=== PATIENT | female | born 1995 | race Caucasian/White ===

== ENCOUNTER 2017-07-10 17:02 | Emergency (ER) | payer MEDICAID, OTHER ==
[2017-07-10 17:26] VITALS: RESP 18
--- NOTE | 2017-07-10 18:31 | C.PDOC ---
History Of Present Illness 22 year old female with a Hx of old right shoulder dislocation at the age of 13 presents to the ER after she was play fighting with her friend 3-4 days ago and heard a crack. Patient is now complaining of pain to the right upper back and right shoulder area. Patient states she took NSAIDs once the day the injury occurred but has not since then. Denies weakness or numbness. Time Seen by Provider: 07/10/17 17:43 Chief Complaint (Nursing): Upper Extremity Problem/Injury History Per: Patient History/Exam Limitations: no limitations Onset/Duration Of Symptoms: Days Current Symptoms Are (Timing): Still Present Exacerbating Factor(s): Strenuous Use Of Affected Area Recent travel outside of the [place]: No Past Medical History Reviewed: Historical Data, Nursing Documentation, Vital Signs Vital Signs: Last Vital Signs Temp 98.5 F 07/10/17 19:44 Pulse 84 07/10/17 19:44 Resp 18 07/10/17 19:44 BP 110/59 L 07/10/17 19:44 Pulse Ox 99 07/11/17 22:21 Family History: States: Unknown Family Hx - Social History Hx Tobacco Use: No Hx Alcohol Use: Yes Hx Substance Use: No - Immunization History Hx Tetanus Toxoid Vaccination: No Hx Influenza Vaccination: No Hx Pneumococcal Vaccination: No Review Of Systems Musculoskeletal: Positive for: Shoulder Pain (Right), Back Pain (Right upper) Neurological: Negative for: Weakness, Numbness Physical Exam - Physical Exam Appears: Non-toxic, Other (Mildly uncomfortable) Skin: Normal Color, Warm, Dry Head: Atraumatic, Normacephalic Eye(s): bilateral: Normal Inspection Neck: No Midline Cervical Tenderness, No Step Off Deformity, Supple Back: Paraspinal Tenderness (Right trapezius/rhomboid) Extremity: Normal ROM (x4), Tenderness (Right posterior shoulder), Capillary Refill (<2 seconds), No Deformity, Other (Right shoulder not displaced) Pulses: Left Radial: Normal, Right Radial: Normal Neurological/Psych: Oriented x3, Normal Speech, Normal Motor, Normal Sensation ED Course And Treatment O2 Sat by Pulse Oximetry: 99 (Room air) Pulse Ox Interpretation: Normal Medical Decision Making Medical Decision Making: Right shoulder x-ray ordered. Toradol administered. 758 pm pt feeling much better after Toradol, ready to go home. xray neg for fx and dislocation Disposition Counseled Patient/Family Regarding: Studies Performed, Diagnosis, Need For Followup, Rx Given - Disposition Referrals: Ronal Haji MD [Staff Provider] - Disposition: HOME/ ROUTINE Disposition Time: 20:00 Condition: IMPROVED Additional Instructions: Please take ibuprofren as prescribed, Cold compresses to affected area several times a day. FOllow up with orthopedics if pain persists after a few days. . Prescriptions: Ibuprofen [Motrin] 600 mg PO TID #30 tab Forms: [employer] (Romansh), General Discharge Instructions - Clinical Impression Clinical Impression: Trapezius muscle strain, Shoulder pain, right - PA / [employer] / Resident Statement MD/DO has reviewed & agrees with the documentation as recorded. - Scribe Statement The provider has reviewed the documentation as recorded by the Scribivania Juan All medical record entries made by the Chanelibivania were at my direction and personally dictated by me. I have reviewed the chart and agree that the record accurately reflects my personal performance of the history, physical exam, medical decision making, and the department course for this patient. I have also personally directed, reviewed, and agree with the discharge instructions and disposition.
[2017-07-10 19:44] VITALS: BP 110/59; PULSE 84; TEMP 98.5
[2017-07-10 20:02] VITALS: O2SAT 99
--- NOTE | 2017-07-11 09:01 | RAD ---
PROCEDURE: Radiographs of the Right Shoulder HISTORY: tender to posterior shoulder, hx prior dislocation COMPARISON: No prior. FINDINGS: BONES: Normal. No fracture. JOINTS: Normal. Glenohumeral and acromioclavicular joints preserved. No osteoarthritis. SOFT TISSUES: Normal. OTHER FINDINGS: None. IMPRESSION: No evidence of acute fracture or dislocation.
== END 2017-07-10 20:16 | disposition home or self-care (01) ==
LOC: C.ER 17:02
DX: S46.911A Strain of unspecified muscle, fascia and tendon at shoulder and upper arm level, right arm, initial encounter (principal); X50.0XXA Overexertion from strenuous movement or load, initial encounter; Y92.9 Unspecified place or not applicable; M25.511 Pain in right shoulder
CPT/HCPCS: 73030; 96372; 99284; J1885

== ENCOUNTER 2018-05-30 16:54 | Emergency (ER) | payer MEDICAID, OTHER ==
[2018-05-30 17:08] VITALS: BP 137/86; PULSE 81; RESP 18; TEMP 99.5; O2SAT 99
[2018-05-30] MEDS ORDERED: Amoxicillin-Clav 500-125 mg Tab PO ONE (17:36)
--- NOTE | 2018-05-30 17:43 | C.PDOC ---
History Of Present Illness 23 year old female presents to the ED complaining of sore throat and ear pain for 3 days. Denies any fever, chills, congestion, n/v/d, or any other complaints. Time Seen by Provider: 05/30/18 17:08 Chief Complaint (Nursing): ENT Problem History Per: Patient History/Exam Limitations: None Onset/Duration Of Symptoms: Days (3) Current Symptoms Are (Timing): Still Present Quality (Ear): Pain W/Touch Quality (Mouth/Throat): Other (pain) Past Medical History Reviewed: Historical Data, Nursing Documentation, Vital Signs Vital Signs: Last Vital Signs Temp 99.5 F 05/30/18 17:05 Pulse 81 05/30/18 17:05 Resp 18 05/30/18 17:05 BP 137/86 05/30/18 17:05 Pulse Ox 99 05/30/18 17:05 - Medical History PMH: No Chronic Diseases Denies: Asthma, Diabetes, Hepatitis, HIV, HTN, Chronic Kidney Disease, Seizures, Sexually Transmitted Disease Surgical History: No Surg Hx Family History: States: No Known Family Hx - Social History Hx Tobacco Use: No Hx Alcohol Use: Yes Hx Substance Use: No - Immunization History Hx Tetanus Toxoid Vaccination: No Hx Influenza Vaccination: No Hx Pneumococcal Vaccination: No Review Of Systems Except As Marked, All Systems Reviewed And Found Negative. Constitutional: Negative for: Fever, Chills ENT: Positive for: Ear Pain, Throat Pain. Negative for: Nose Discharge, Nose Congestion Respiratory: Negative for: Cough, Shortness of Breath Gastrointestinal: Negative for: Nausea, Vomiting, Diarrhea Physical Exam - Physical Exam Appears: Non-toxic, No Acute Distress Skin: Warm, Dry, No Rash Head: Normacephalic Eye(s): bilateral: Normal Inspection Ear(s): Bilateral: TM Erythema Nose: Normal Oral Mucosa: Moist Tongue: Normal Appearing Lips: Normal Appearing Teeth: Normal Dentition Gingiva: Normal Appearing Throat: Erythema, No Exudate Neck: Supple Chest: Symmetrical Cardiovascular: Rhythm Regular Respiratory: Normal Breath Sounds, No Rales, No Rhonchi, No Wheezing Neurological/Psych: Oriented x3, Normal Speech Gait: Steady ED Course And Treatment O2 Sat by Pulse Oximetry: 99 (RA) Pulse Ox Interpretation: Normal Medical Decision Making Medical Decision Making: Plan - Amoxicillin 500mg PO om no unilaterla swelling hotpotato voice. well appearin onphone inn ad. Disposition - Disposition Referrals: [facility] [Outside] [facility] [Outside] Disposition: HOME/ ROUTINE Disposition Time: 18:09 Condition: STABLE Additional Instructions: return to any er with worsening. Prescriptions: RX: Amoxicillin [Amoxil 500 mg Cap] 500 mg PO TID #30 cap Instructions: Ear Infections (Otitis Media), Sore Throat, Adult (DC) Forms: [employer] (Amharic) - Clinical Impression Clinical Impression: Otitis media - Scribe Statement The provider has reviewed the documentation as recorded by the Scribe Kathleen Quintana All medical record entries made by the Scribe were at my direction and personally dictated by me. I have reviewed the chart and agree that the record accurately reflects my personal performance of the history, physical exam, medical decision making, and the department course for this patient. I have also personally directed, reviewed, and agree with the discharge instructions and disposition.
== END 2018-05-30 18:44 | disposition home or self-care (01) ==
LOC: C.ER 16:54
DX: H66.90 Otitis media, unspecified, unspecified ear (principal)